=== PATIENT | male | born 1990 | race African-American/Black ===

== ENCOUNTER 2019-08-02 09:05 | Observation (INO) | payer BC ==
[2019-08-02] MEDS ORDERED: Sodium Chloride 0.9% 1,000 ML IV ONE (09:34)
[2019-08-02] MEDS ORDERED: Sodium Chloride 0.9% 10 ML Syringe FLUSH PRN ×2 (09:34→14:39)
[2019-08-02] MEDS ORDERED: Ketorolac 30 MG/ML SDV IVPUSH ONE (09:34)
[2019-08-02] MEDS ORDERED: Sodium Chloride 0.9% 2.5 ML Syringe FLUSH PRN ×2 (09:34→14:39)
--- NOTE | 2019-08-02 09:35 | EDM.PDOC ---
ED HPI GENERAL MEDICAL PROBLEM - General Chief Complaint: Abdominal Pain Stated Complaint: BILATERAL LOWER BACK Time Seen by Provider: 08/02/19 09:10 Source of Information: Reports: Patient History Limitations: Reports: No Limitations - History of Present Illness INITIAL COMMENTS - FREE TEXT/NARRATIVE: History of present illness: []Patient started having bilateral lower abdominal pain worse on the right last night with chills. He eats he has low back pain denies any pain with urination, penile discharge, fevers blood in his urine. She has not had any previous abdominal surgery denies any nausea vomiting. Review of systems: As per history of present illness and below otherwise all systems reviewed and negative. Past medical history: As per history of present illness and as reviewed below otherwise noncontributory. Surgical history: As per history of present illness and as reviewed below otherwise noncontributory. Social history: No reported history of drug or alcohol abuse. Family history: As per history of present illness and as reviewed below otherwise noncontributory. Physical exam: General: Well developed, well nourished in NAD HEENT: Atraumatic, normocephalic, pupils reactive, negative for conjunctival pallor or scleral icterus, mucous membranes moist, throat clear, neck supple, nontender, trachea midline. Lungs: Clear to auscultation, breath sounds equal bilaterally, chest nontender. Heart: S1S2, regular, negative for clicks, rubs, or JVD. Abdomen: NABS, Soft, nondistended, tender bilateral lower quadrant with increased tenderness in the right lower quadrant no rebound or guarding. Negative for masses or hepatosplenomegaly. Negative for costovertebral tenderness. Pelvis: Stable nontender. Genitourinary: Deferred. Rectal: Deferred. Extremities: Atraumatic, negative for cords or calf pain. Neurovascular unremarkable. Neuro: Awake, alert, oriented. Cranial nerves II through XII unremarkable. Cerebellum unremarkable. Motor and sensory unremarkable throughout. Exam nonfocal. Skin:warm and dry Diagnostics: CBC, chemistry, lipase, UA, abdominal ultrasound-acute cholecystitis Therapeutics: IV hydration, Toradol, zosyn ED Course: Stable Impression: acute cholecystitis Prescriptions: none Plan: admit for choleycystectomy Definitive disposition and diagnosis as appropriate pending reevaluation and review of above. Lower Abdomen Pain Score (Numeric/FACES): 8 - Related Data Allergies Allergy/AdvReac Type Severity Reaction Status Date / Time meperidine [From Demerol] Allergy Hives Verified 08/02/19 18:02 morphine Allergy Hives Verified 08/02/19 18:02 Home Meds: Home Meds . [No Known Home Meds] 08/02/19 [History] Past Medical History - Past Health History Medical/Surgical History: Denies Medical/Surgical History - Past Surgical History GI Surgical History: Reports: Hernia Repair/Other Social & Family History - Family History Family Medical History: Noncontributory - Tobacco Use Smoking Status *Q: Light Tobacco Smoker Years of Tobacco use: 10 Packs/Tins Daily: 0.1 - Recreational Drug Use Recreational Drug Use: No ED ROS GENERAL - Review of Systems Review Of Systems: See Below ED EXAM,LOWER BACK PAIN/INJURY - Physical Exam Exam: See Below Course - Vital Signs Last Recorded V/S: Last Vital Signs Temp 99.0 F 08/03/19 09:40 Pulse 68 08/03/19 10:15 Resp 13 08/03/19 10:15 BP 142/88 H 08/03/19 10:15 Pulse Ox 92 L 08/03/19 10:15 - Orders/Labs/Meds Orders: Active Orders 24 hr Category Date Time Status Sodium Chloride 0.9% [Saline Flush] Med 08/02/19 09:34 Active 10 ml FLUSH ASDIRECTED PRN Sodium Chloride 0.9% [Saline Flush] Med 08/02/19 09:34 Active 2.5 ml FLUSH ASDIRECTED PRN Saline Lock Insert [OM.PC] Stat Oth 08/02/19 09:33 Ordered Medication Orders Hydrocodone Bitart/Acetaminophen ([place] 325-5 Mg) 2 tab PO Q4H PRN PRN Reason: Pain (moderate 4-6) Fentanyl (Sublimaze) 50 mcg IVPUSH Q5M PRN PRN Reason: Pain (severe 7-10) Stop: 08/04/19 09:52 Hydromorphone HCl (Dilaudid) 0.5 mg IVPUSH Q1H PRN PRN Reason: Pain (severe 7-10) Ondansetron HCl (Zofran) 4 mg IVPUSH Q6H PRN PRN Reason: Nausea/Vomiting Sodium Chloride (Saline Flush) 10 ml FLUSH ASDIRECTED PRN PRN Reason: Keep Vein Open Sodium Chloride (Saline Flush) 2.5 ml FLUSH ASDIRECTED PRN PRN Reason: Keep Vein Open Sodium Chloride (Saline Flush) 10 ml FLUSH ASDIRECTED PRN PRN Reason: Keep Vein Open Sodium Chloride (Saline Flush) 2.5 ml FLUSH ASDIRECTED PRN PRN Reason: Keep Vein Open Sodium Chloride (Normal Saline) 10 ml IV ASDIRECTED PRN PRN Reason: IV Use Labs: Laboratory Tests 08/02/19 08/02/19 08/02/19 Range/Units 09:49 09:49 09:49 WBC 11.24 H (4.0-11.0) K/uL RBC 5.05 (4.50-5.90) M/uL Hgb 15.1 (13.0-17.0) g/dL Hct 45.0 (38.0-50.0) % MCV 89.1 (80.0-98.0) fL MCH 29.9 (27.0-32.0) pg MCHC 33.6 (31.0-37.0) g/dL RDW Std Deviation 42.7 (28.0-62.0) fl RDW Coeff of [place] 13 (11.0-15.0) % Plt Count 266 (150-400) K/uL MPV 10.20 (7.40-12.00) fL Neut % (Auto) 72.9 (48.0-80.0) % Lymph % (Auto) 15.7 L (16.0-40.0) % [place] % (Auto) 10.3 (0.0-15.0) % Eos % (Auto) 0.9 (0.0-7.0) % Baso % (Auto) 0.2 (0.0-1.5) % Neut # (Auto) 8.2 H (1.4-5.7) K/uL Lymph # (Auto) 1.8 (0.6-2.4) K/uL [place] # (Auto) 1.2 H (0.0-0.8) K/uL Eos # (Auto) 0.1 (0.0-0.7) K/uL Baso # (Auto) 0.0 (0.0-0.1) K/uL Nucleated RBC % 0.0 /100WBC Nucleated RBCs # 0 K/uL Sodium 140 (136-148) mmol/L Potassium 3.4 L (3.5-5.1) mmol/L Chloride 103 (98-107) mmol/L Carbon Dioxide 25.0 (21.0-32.0) mmol/L BUN 11 (7.0-18.0) mg/dL Creatinine 1.0 (0.8-1.3) mg/dL Est Cr Clr Drug Dosing 106.40 mL/min Estimated GFR (MDRD) > 60.0 ml/min Glucose 96 (74-106) mg/dL Calcium 8.9 (8.5-10.1) mg/dL Total Bilirubin 0.3 (0.2-1.0) mg/dL AST 28 (15-37) IU/L ALT 51 (14-63) IU/L Alkaline Phosphatase 78 (46-116) U/L Total Protein 8.8 H (6.4-8.2) g/dL Albumin 3.7 (3.4-5.0) g/dL Globulin 5.1 H (2.6-4.0) g/dL Albumin/Globulin Ratio 0.7 L (0.9-1.6) Lipase 77 (73-393) U/L Urine Color YELLOW Urine Appearance CLEAR Urine pH 6.5 (5.0-8.0) Ur Specific [place] <= 1.005 (1.001-1.035) Urine Protein NEGATIVE (NEGATIVE) mg/dL Urine Glucose (UA) NEGATIVE (NEGATIVE) mg/dL Urine Ketones NEGATIVE (NEGATIVE) mg/dL Urine Occult Blood MODERATE H (NEGATIVE) Urine Nitrite NEGATIVE (NEGATIVE) Urine Bilirubin NEGATIVE (NEGATIVE) Urine Urobilinogen 0.2 (<2.0) EU/dL Ur Leukocyte Esterase NEGATIVE (NEGATIVE) Urine RBC 0-2 (0-2/HPF) Urine WBC 0-1 (0-5/HPF) Ur Epithelial Cells RARE (NONE-FEW) Urine Bacteria RARE (NEGATIVE) Meds: Medications Generic Name Dose Route Start Last Admin Trade Name Freq PRN Reason Stop Dose Admin Hydrocodone Bitart/Acetaminophen 2 tab 08/02/19 14:39 [place] 325-5 Mg PO Q4H PRN Pain (moderate 4-6) Fentanyl 50 mcg 08/03/19 09:51 Sublimaze IVPUSH 08/04/19 09:52 Q5M PRN Pain (severe 7-10) Hydromorphone HCl 0.5 mg 08/02/19 14:39 Dilaudid IVPUSH Q1H PRN Pain (severe 7-10) Ondansetron HCl 4 mg 08/02/19 14:39 Zofran IVPUSH Q6H PRN Nausea/Vomiting Sodium Chloride 10 ml 08/02/19 09:34 Saline Flush FLUSH ASDIRECTED PRN Keep Vein Open Sodium Chloride 2.5 ml 08/02/19 09:34 Saline Flush FLUSH ASDIRECTED PRN Keep Vein Open Sodium Chloride 10 ml 08/02/19 14:39 Saline Flush FLUSH ASDIRECTED PRN Keep Vein Open Sodium Chloride 2.5 ml 08/02/19 14:39 Saline Flush FLUSH ASDIRECTED PRN Keep Vein Open Sodium Chloride 10 ml 08/02/19 14:39 Normal Saline IV ASDIRECTED PRN IV Use Discontinued Medications Generic Name Dose Route Start Last Admin Trade Name Freq PRN Reason Stop Dose Admin Bupivacaine HCl Confirm 08/03/19 07:26 Marcaine 0.5% Administered 08/03/19 07:27 Dose 30 ml .ROUTE .STK-MED ONE Dexamethasone Confirm 08/03/19 08:24 Dexamethasone Administered 08/03/19 08:25 Dose 20 mg .ROUTE .STK-MED ONE Fentanyl Confirm 08/03/19 07:20 Sublimaze Administered 08/03/19 07:21 Dose 250 mcg .ROUTE .STK-MED ONE Fentanyl Confirm 08/03/19 09:03 Sublimaze Administered 08/03/19 09:04 Dose 100 mcg .ROUTE .STK-MED ONE Glycopyrrolate Confirm 08/03/19 09:16 Robinul Administered 08/03/19 09:17 Dose 0.4 mg .ROUTE .STK-MED ONE Sodium Chloride 1,000 mls @ 999 mls/hr 08/02/19 09:34 08/02/19 09:57 Normal Saline IV 08/02/19 10:34 999 mls/hr .Bolus ONE Administration Piperacillin Sod/Tazobactam 50 mls @ 100 mls/hr 08/02/19 13:37 08/02/19 14:43 Sod 3.375 gm/ Sodium Chloride IV 08/02/19 14:06 100 mls/hr ONETIME ONE Administration Lactated Ringer's 1,000 mls @ 125 mls/hr 08/02/19 14:45 08/02/19 23:28 Ringers, Lactated IV 125 mls/hr ASDIRECTED ADI Administration Lactated Ringer's 1,000 mls @ 125 mls/hr 08/02/19 14:45 Ringers, Lactated IV ASDIRECTED ADI Piperacillin Sod/Tazobactam 100 mls @ 200 mls/hr 08/02/19 20:00 08/03/19 07: 50 Sod 3.375 gm/ Sodium Chloride IV Not Given Q6H ADI Iopamidol 100 ml 08/02/19 16:00 08/02/19 16:00 Isovue Multipack-370 (76%) IVPUSH 08/02/19 16:01 100 ml ONETIME STA Administration Ketorolac Tromethamine 30 mg 08/02/19 09:34 08/02/19 09:57 Toradol IVPUSH 08/02/19 09:35 30 mg ONETIME ONE Administration Lidocaine HCl Confirm 08/03/19 07:20 Xylocaine-Mpf 1% Administered 08/03/19 07:21 Dose 5 ml .ROUTE .STK-MED ONE Midazolam HCl Confirm 08/03/19 07:20 Versed 1 Mg/Ml Administered 08/03/19 07:21 Dose 2 mg .ROUTE .STK-MED ONE Neostigmine Methylsulfate Confirm 08/03/19 09:16 Neostigmine Administered 08/03/19 09:17 Dose 5 mg .ROUTE .STK-MED ONE Ondansetron HCl Confirm 08/03/19 07:20 Zofran Administered 08/03/19 07:21 Dose 4 mg .ROUTE .STK-MED ONE Ondansetron HCl 4 mg 08/03/19 09:51 Zofran IVPUSH 08/03/19 09:52 ONETIME ONE Propofol Confirm 08/03/19 07:20 Diprivan 20 Ml Administered 08/03/19 07:21 Dose 200 mg .ROUTE .STK-MED ONE Rocuronium [place] Confirm 08/03/19 07:20 Zemuron Administered 08/03/19 07:21 Dose 100 mg .ROUTE .STK-MED ONE Departure - Departure Time of Disposition: :19 Disposition: Refer to Observation Condition: Good Clinical Impression: Acute cholecystitis - Discharge Information *PRESCRIPTION DRUG MONITORING PROGRAM REVIEWED*: No *COPY OF PRESCRIPTION DRUG MONITORING REPORT IN PATIENT KAREN: No - My Orders Last 24 Hours: My Active Orders 08/02/19 09:33 Saline Lock Insert [OM.PC] Stat 08/02/19 09:34 Sodium Chloride 0.9% [Saline Flush] 10 ml FLUSH ASDIRECTED PRN Sodium Chloride 0.9% [Saline Flush] 2.5 ml FLUSH ASDIRECTED PRN - Assessment/Plan Last 24 Hours: My Active Orders 08/02/19 09:33 Saline Lock Insert [OM.PC] Stat 08/02/19 09:34 Sodium Chloride 0.9% [Saline Flush] 10 ml FLUSH ASDIRECTED PRN Sodium Chloride 0.9% [Saline Flush] 2.5 ml FLUSH ASDIRECTED PRN
[2019-08-02 10:34] LABS: BLOOD UREA NITROGEN,BUN 11 mg/dL (7.0-18.0); CHLORIDE,CL 103 mmol/L (98-107); GLUCOSE RANDOM 96 mg/dL (74-106); LIPASE 77 U/L (73-393); POTASSIUM,K 3.4 mmol/L (3.5-5.1); SODIUM,NA 140 mmol/L (136-148)
--- NOTE | 2019-08-02 12:03 | CT ---
CT abdomen and pelvis Technique: Multiple axial sections were obtained from above the dome of the diaphragm inferiorly through the pubic symphysis. Intravenous contrast was utilized. No oral contrast has been given. Comparison: No prior abdominal imaging. Findings: Small nodule is noted within the left lung base which shows no calcifications. This nodule measures approximately 4.6 mm. Low-density area is noted next to the ligamentum teres fissure which is felt compatible with incidental fat. No focal abnormality is otherwise is seen within the liver. Spleen appears within normal limits. Gallbladder shows calcified gallstone. Low density is noted around the gallbladder suggesting gallbladder wall edema. Please correlate if patient has any symptoms to suggest cholecystitis. Kidneys show symmetric contrast enhancement without hydronephrosis or mass. Adrenal glands show no nodule. Pancreas is within normal limits. Aorta shows no aneurysm. No retroperitoneal adenopathy or mesenteric abnormalities are seen. Appendix is seen and is normal in size. No pelvic mass or adenopathy is seen. No free fluid or inflammatory change is seen. Bone window settings were reviewed which appear within normal limits for the patient's age. Impression: 1. Gallbladder wall edema and gallstone. Findings raise the possibility of cholecystitis. Please correlate. If any further questions remain, gallbladder ultrasound could be obtained. 2. Small nodule within the left lung base. If patient is not a smoker, this can be ignored. If patient is a smoker, recommend repeat chest CT study without contrast in one year. 3. No additional abnormality is identified on CT study of the abdomen and pelvis. Diagnostic code #3 MTDD
--- NOTE | 2019-08-02 13:35 | US ---
Limited abdominal ultrasound: Multiple real-time images of the right upper abdomen were obtained. Comparison: Prior CT abdomen and pelvis exam performed earlier on the same day ( 11:20 AM) Findings: Gallbladder wall is thickened with pericholecystic fluid. Single gallstone is noted. No biliary duct dilatation is seen. Liver shows no focal parenchymal abnormality. Right kidney shows no hydronephrosis or mass. Right kidney has a length of 11.1 cm. Pancreas shows no discrete abnormality. Impression: 1. Gallbladder wall is thickened with pericholecystic fluid. Single gallstone is noted. No biliary duct dilatation is seen. Findings are highly suspicious for acute cholecystitis. 2. Other portions of the right upper quadrant abdominal ultrasound are unremarkable. Diagnostic code #5 MTDD
[2019-08-02] MEDS ORDERED: Piperacillin/Tazobactam 3.375 GM in Sodium Chloride 0.9% 50 ML IV ONE (13:37)
--- NOTE | 2019-08-02 14:19 | PCM.HP.2 ---
H&P History of Present Illness - General Date of Service: 08/02/19 Admit Problem/Dx: Admission Diagnosis/Problem Admission Diagnosis/Problem Acute cholecystitis Source of Information: Patient History Limitations: Reports: No Limitations - History of Present Illness Initial Comments - Free Text/Narative: Patient is a 28 year old male who presented with abdominal pain to the ER. It started last evening after eating [employer]. He developed sharp pains across the mid-abdomen. It was constant. Nothing made it better or worse. He denies fevers, chills, nausea or vomiting. He presented to the ER. He was slightly hypertensive and mildly tachycardic. He was given IV pain medications with complete resolution of his symptoms. He had a mild leukocytosis. LFTs were normal. CT abdomen pelvis showed an edematous gallbladder with a stone concerning for acute cholecystitis. This was confirmed by RUQ US. He denies raza's sign. Lower Abdomen Pain Score (Numeric/FACES): 8 - Related Data Allergies/Adverse Reactions: Allergies Allergy/AdvReac Type Severity Reaction Status Date / Time meperidine [From Demerol] Allergy Hives Verified 08/02/19 09:16 morphine Allergy Hives Verified 08/02/19 09:16 Home Medications: Home Meds . [No Known Home Meds] 08/02/19 [History] Past Medical History - Past Health History Medical/Surgical History: Denies Medical/Surgical History - Past Surgical History GI Surgical History: Reports: Hernia Repair/Other Other Musculoskeletal Surgeries/Procedures:: hand surgery Social & Family History - Family History Family Medical History: Noncontributory - Tobacco Use Smoking Status *Q: Light Tobacco Smoker Years of Tobacco use: 10 Packs/Tins Daily: 0.1 - Recreational Drug Use Recreational Drug Use: No H&P Review of Systems - Review of Systems: Review Of Systems: ROS reveals no pertinent complaints other than HPI. Exam - Exam Exam: See Below - Vital Signs Vital Signs: Last Vital Signs Temp 36.1 C 08/02/19 09:13 Pulse 100 08/02/19 09:13 Resp 18 08/02/19 09:13 BP 134/95 H 08/02/19 09:13 Pulse Ox 98 08/02/19 09:13 Weight: 82.4 kg - Exam Quality Assessment: Supplemental Oxygen General: Alert, Oriented HEENT: Conjunctiva Clear, Mucosa Moist & [place], Posterior Pharynx Clear Neck: Supple, Trachea Midline Lungs: Clear to Auscultation Cardiovascular: Regular Rate, Regular Rhythm GI/Abdominal Exam: Soft, Non-Tender, No Distention, No Mass Back Exam: Normal Inspection - Patient Data Lab Results Last 24 hrs: Laboratory Results - last 24 hr 08/02/19 08/02/19 08/02/19 Range/Units 09:49 09:49 09:49 WBC 11.24 H (4.0-11.0) K/uL RBC 5.05 (4.50-5.90) M/uL Hgb 15.1 (13.0-17.0) g/dL Hct 45.0 (38.0-50.0) % MCV 89.1 (80.0-98.0) fL MCH 29.9 (27.0-32.0) pg MCHC 33.6 (31.0-37.0) g/dL RDW Std Deviation 42.7 (28.0-62.0) fl RDW Coeff of [place] 13 (11.0-15.0) % Plt Count 266 (150-400) K/uL MPV 10.20 (7.40-12.00) fL Neut % (Auto) 72.9 (48.0-80.0) % Lymph % (Auto) 15.7 L (16.0-40.0) % [place] % (Auto) 10.3 (0.0-15.0) % Eos % (Auto) 0.9 (0.0-7.0) % Baso % (Auto) 0.2 (0.0-1.5) % Neut # (Auto) 8.2 H (1.4-5.7) K/uL Lymph # (Auto) 1.8 (0.6-2.4) K/uL [place] # (Auto) 1.2 H (0.0-0.8) K/uL Eos # (Auto) 0.1 (0.0-0.7) K/uL Baso # (Auto) 0.0 (0.0-0.1) K/uL Nucleated RBC % 0.0 /100WBC Nucleated RBCs # 0 K/uL Sodium 140 (136-148) mmol/L Potassium 3.4 L (3.5-5.1) mmol/L Chloride 103 (98-107) mmol/L Carbon Dioxide 25.0 (21.0-32.0) mmol/L BUN 11 (7.0-18.0) mg/dL Creatinine 1.0 (0.8-1.3) mg/dL Est Cr Clr Drug Dosing 106.40 mL/min Estimated GFR (MDRD) > 60.0 ml/min Glucose 96 (74-106) mg/dL Calcium 8.9 (8.5-10.1) mg/dL Total Bilirubin 0.3 (0.2-1.0) mg/dL AST 28 (15-37) IU/L ALT 51 (14-63) IU/L Alkaline Phosphatase 78 (46-116) U/L Total Protein 8.8 H (6.4-8.2) g/dL Albumin 3.7 (3.4-5.0) g/dL Globulin 5.1 H (2.6-4.0) g/dL Albumin/Globulin Ratio 0.7 L (0.9-1.6) Lipase 77 (73-393) U/L Urine Color YELLOW Urine Appearance CLEAR Urine pH 6.5 (5.0-8.0) Ur Specific [place] <= 1.005 (1.001-1.035) Urine Protein NEGATIVE (NEGATIVE) mg/dL Urine Glucose (UA) NEGATIVE (NEGATIVE) mg/dL Urine Ketones NEGATIVE (NEGATIVE) mg/dL Urine Occult Blood MODERATE H (NEGATIVE) Urine Nitrite NEGATIVE (NEGATIVE) Urine Bilirubin NEGATIVE (NEGATIVE) Urine Urobilinogen 0.2 (<2.0) EU/dL Ur Leukocyte Esterase NEGATIVE (NEGATIVE) Urine RBC 0-2 (0-2/HPF) Urine WBC 0-1 (0-5/HPF) Ur Epithelial Cells RARE (NONE-FEW) Urine Bacteria RARE (NEGATIVE) Result Diagrams: 08/02/19 09:49 08/02/19 09:49 - Problem List (1) Acute cholecystitis due to biliary calculus SNOMED Code(s): 51905025228313 ICD Code: K80.00 - CALCULUS OF GALLBLADDER W ACUTE CHOLECYST W/O OBSTRUCTION Status: Acute Current Visit: Yes Problem List Initiated/Reviewed/Updated: Yes Orders Last 24hrs: Active Orders 24 hr Category Date Time Status Patient Status [ADT] Stat ADT 08/02/19 14:11 Active NPO [Nothing Per Oral Diet] [DIET] Diet 08/02/19 Lunch Active Sodium Chloride 0.9% [Saline Flush] Med 08/02/19 09:34 Active 10 ml FLUSH ASDIRECTED PRN Sodium Chloride 0.9% [Saline Flush] Med 08/02/19 09:34 Active 2.5 ml FLUSH ASDIRECTED PRN Saline Lock Insert [OM.PC] Stat Oth 08/02/19 09:33 Ordered Medication Orders Sodium Chloride (Saline Flush) 10 ml FLUSH ASDIRECTED PRN PRN Reason: Keep Vein Open Sodium Chloride (Saline Flush) 2.5 ml FLUSH ASDIRECTED PRN PRN Reason: Keep Vein Open Assessment/Plan Comment:: I explained the pathophysiology of biliary disease. The treatment for acute cholecystitis is surgical if the symptoms have been going on for <3 days. I will admit the patient for IV antibiotics, IVF resuscitation and take him in the morning for a laparoscopic possible open cholecystectomy. We discussed the procedure, expected perioperative course and risks including bleeding infection or damage to surrounding structures. He verbalized understanding and wishes to proceed.
[2019-08-02] MEDS ORDERED: Ondansetron 4 MG/2 ML SDV IVPUSH PRN (14:39)
[2019-08-02] MEDS ORDERED: Sodium Chloride 0.9% 10 ML SDV IV PRN (14:39)
[2019-08-02] MEDS ORDERED: HYDROmorphone 2 MG/ML Syringe IVPUSH PRN (14:39)
[2019-08-02] MEDS: Lactated Ringers 1,000 ML IV SCH ×2 (14:43→23:28)
[2019-08-02] MEDS ORDERED: Lactated Ringers 1,000 ML IV SCH (14:45)
[2019-08-02] MEDS ORDERED: Iopamidol 755 MG/ML 500 ML Multipack Bottle IVPUSH STA (16:00)
[2019-08-02] MEDS: Piperacillin/Tazobactam 3.375 GM in Sodium Chloride 0.9% 100 ML IV SCH (20:48)
[2019-08-03] MEDS: Piperacillin/Tazobactam 3.375 GM in Sodium Chloride 0.9% 100 ML IV SCH ×2 (01:32→07:50)
[2019-08-03 05:32] LABS: BLOOD UREA NITROGEN,BUN 9 mg/dL (7.0-18.0); CARBON DIOXIDE,CO2 25.9 mmol/L (21.0-32.0); CHLORIDE,CL 105 mmol/L (98-107); GLUCOSE RANDOM 86 mg/dL (74-106); POTASSIUM,K 3.7 mmol/L (3.5-5.1); SODIUM,NA 141 mmol/L (136-148)
[2019-08-03] MEDS ORDERED: Ondansetron 4 MG/2 ML SDV ONE (07:20)
[2019-08-03] MEDS ORDERED: fentaNYL 250 MCG/5 ML SDV ONE (07:20)
[2019-08-03] MEDS ORDERED: Midazolam 1 MG/ML 2 ML SDV ONE (07:20)
[2019-08-03] MEDS ORDERED: Rocuronium 100 MG/10 ML Syringe ONE (07:20)
[2019-08-03] MEDS ORDERED: Propofol 200 MG/20 ML SDV ONE (07:20)
[2019-08-03] MEDS ORDERED: Bupivacaine 0.5% 30 ML SDV ONE (07:26)
--- NOTE | 2019-08-03 07:27 | PCM.PREANE ---
Preanesthetic Assessment - Anesthesia/Transfusion/Family Hx Anesthesia History: Prior Anesthesia Without Reaction Family History of Anesthesia Reaction: No Transfusion History: No Prior Transfusion(s) - Review of Systems General: No Symptoms Pulmonary: No Symptoms Cardiovascular: No Symptoms Gastrointestinal: Abdominal Pain Neurological: No Symptoms Other: Reports: None - Physical Assessment Vital Signs: Last Vital Signs Temp 97.9 F 08/03/19 04:00 Pulse 54 L 08/03/19 04:00 Resp 16 08/03/19 04:00 BP 136/79 08/03/19 04:00 Pulse Ox 95 08/03/19 04:00 Height: 5 ft 8 in Weight: 81.601 kg ASA Class: 2 Mental Status: Alert & Oriented x3 Airway Class: Mallampati = 2 Dentition: Reports: Normal Dentition ROM/Head Extension: Full Lungs: Clear to Auscultation, Normal Respiratory Effort Cardiovascular: Regular Rate, Regular Rhythm - Lab Values: Laboratory Last Values WBC 8.39 K/uL (4.0-11.0) 08/03/19 04:50 RBC 4.74 M/uL (4.50-5.90) 08/03/19 04:50 Hgb 14.1 g/dL (13.0-17.0) 08/03/19 04:50 Hct 42.5 % (38.0-50.0) 08/03/19 04:50 MCV 89.7 fL (80.0-98.0) 08/03/19 04:50 MCH 29.7 pg (27.0-32.0) 08/03/19 04:50 MCHC 33.2 g/dL (31.0-37.0) 08/03/19 04:50 RDW Std Deviation 43.2 fl (28.0-62.0) 08/03/19 04:50 RDW Coeff of Wilda 13 % (11.0-15.0) 08/03/19 04:50 Plt Count 258 K/uL (150-400) 08/03/19 04:50 MPV 10.20 fL (7.40-12.00) 08/03/19 04:50 Neut % (Auto) 72.9 % (48.0-80.0) 08/02/19 09:49 Lymph % (Auto) 15.7 % (16.0-40.0) L 08/02/19 09:49 [place] % (Auto) 10.3 % (0.0-15.0) 08/02/19 09:49 Eos % (Auto) 0.9 % (0.0-7.0) 08/02/19 09:49 Baso % (Auto) 0.2 % (0.0-1.5) 08/02/19 09:49 Neut # (Auto) 8.2 K/uL (1.4-5.7) H 08/02/19 09:49 Lymph # (Auto) 1.8 K/uL (0.6-2.4) 08/02/19 09:49 [place] # (Auto) 1.2 K/uL (0.0-0.8) H 08/02/19 09:49 Eos # (Auto) 0.1 K/uL (0.0-0.7) 08/02/19 09:49 Baso # (Auto) 0.0 K/uL (0.0-0.1) 08/02/19 09:49 Nucleated RBC % 0.0 /100WBC 08/03/19 04:50 Nucleated RBCs # 0 K/uL 08/03/19 04:50 Sodium 141 mmol/L (136-148) 08/03/19 04:50 Potassium 3.7 mmol/L (3.5-5.1) 08/03/19 04:50 Chloride 105 mmol/L (98-107) 08/03/19 04:50 Carbon Dioxide 25.9 mmol/L (21.0-32.0) 08/03/19 04:50 BUN 9 mg/dL (7.0-18.0) 08/03/19 04:50 Creatinine 1.1 mg/dL (0.8-1.3) 08/03/19 04:50 Est Cr Clr Drug Dosing 96.73 mL/min 08/03/19 04:50 Estimated GFR (MDRD) > 60.0 ml/min 08/03/19 04:50 Glucose 86 mg/dL (74-106) 08/03/19 04:50 Calcium 8.6 mg/dL (8.5-10.1) 08/03/19 04:50 Total Bilirubin 0.9 mg/dL (0.2-1.0) 08/03/19 04:50 AST 25 IU/L (15-37) 08/03/19 04:50 ALT 42 IU/L (14-63) 08/03/19 04:50 Alkaline Phosphatase 68 U/L (46-116) 08/03/19 04:50 Total Protein 7.4 g/dL (6.4-8.2) 08/03/19 04:50 Albumin 3.0 g/dL (3.4-5.0) L 08/03/19 04:50 Globulin 4.4 g/dL (2.6-4.0) H 08/03/19 04:50 Albumin/Globulin Ratio 0.7 (0.9-1.6) L 08/03/19 04:50 Lipase 77 U/L (73-393) 08/02/19 09:49 Urine Color YELLOW 08/02/19 09:49 Urine Appearance CLEAR 08/02/19 09:49 Urine pH 6.5 (5.0-8.0) 08/02/19 09:49 Ur Specific Milner <= 1.005 (1.001-1.035) 08/02/19 09:49 Urine Protein NEGATIVE mg/dL (NEGATIVE) 08/02/19 09:49 Urine Glucose (UA) NEGATIVE mg/dL (NEGATIVE) 08/02/19 09:49 Urine Ketones NEGATIVE mg/dL (NEGATIVE) 08/02/19 09:49 Urine Occult Blood MODERATE (NEGATIVE) H 08/02/19 09:49 Urine Nitrite NEGATIVE (NEGATIVE) 08/02/19 09:49 Urine Bilirubin NEGATIVE (NEGATIVE) 08/02/19 09:49 Urine Urobilinogen 0.2 EU/dL (<2.0) 08/02/19 09:49 Ur Leukocyte Esterase NEGATIVE (NEGATIVE) 08/02/19 09:49 Urine RBC 0-2 (0-2/HPF) 08/02/19 09:49 Urine WBC 0-1 (0-5/HPF) 08/02/19 09:49 Ur Epithelial Cells RARE (NONE-FEW) 08/02/19 09:49 Urine Bacteria RARE (NEGATIVE) 08/02/19 09:49 - Allergies Allergies/Adverse Reactions: Allergies Allergy/AdvReac Type Severity Reaction Status Date / Time meperidine [From Demerol] Allergy Hives Verified 08/02/19 18:02 morphine Allergy Hives Verified 08/02/19 18:02 - Blood Blood Available: No - Anesthesia Plan Pre-Op Medication Ordered: None - Acknowledgements Anesthesia Type Planned: General Anesthesia Pt an Appropriate Candidate for the Planned Anesthesia: Yes Alternatives and Risks of Anesthesia Discussed w Pt/Guardian: Yes Pt/Guardian Understands and Agrees with Anesthesia Plan: Yes Additional Comments: PMH: smoker, acute cholecyctitis PLAN: get PreAnesthesia Questionnaire - Past Health History Medical/Surgical History: Denies Medical/Surgical History - Past Surgical History GI Surgical History: Reports: Hernia Repair/Other Other Musculoskeletal Surgeries/Procedures:: hand surgery - SUBSTANCE USE Smoking Status *Q: Current Some Day Smoker Tobacco Use Within Last Twelve Months: Cigarettes Number of Drinks Per Day: 2 Recreational Drug Use History: No - HOME MEDS Home Medications: Home Meds . [No Known Home Meds] 08/02/19 [History] - CURRENT (IN HOUSE) MEDS Current Meds: Current Medications Hydrocodone Bitart/Acetaminophen ([place] 325-5 Mg) 2 tab PO Q4H PRN PRN Reason: Pain (moderate 4-6) Hydromorphone HCl (Dilaudid) 0.5 mg IVPUSH Q1H PRN PRN Reason: Pain (severe 7-10) Lactated Ringer's (Ringers, Lactated) 1,000 mls @ 125 mls/hr IV ASDIRECTED [facility] Last Admin: 08/02/19 23:28 Dose: 125 mls/hr Piperacillin Sod/Tazobactam (Sod 3.375 gm/ Sodium Chloride) 100 mls @ 200 mls/ hr IV Q6H [facility] Last Admin: 08/03/19 01:32 Dose: 200 mls/hr Ondansetron HCl (Zofran) 4 mg IVPUSH Q6H PRN PRN Reason: Nausea/Vomiting Sodium Chloride (Saline Flush) 10 ml FLUSH ASDIRECTED PRN PRN Reason: Keep Vein Open Sodium Chloride (Saline Flush) 2.5 ml FLUSH ASDIRECTED PRN PRN Reason: Keep Vein Open Sodium Chloride (Saline Flush) 10 ml FLUSH ASDIRECTED PRN PRN Reason: Keep Vein Open Sodium Chloride (Saline Flush) 2.5 ml FLUSH ASDIRECTED PRN PRN Reason: Keep Vein Open Sodium Chloride (Normal Saline) 10 ml IV ASDIRECTED PRN PRN Reason: IV Use Discontinued Medications Fentanyl (Sublimaze) Confirm Administered Dose 250 mcg .ROUTE .STK-MED ONE Stop: 08/03/19 07:21 Sodium Chloride (Normal Saline) 1,000 mls @ 999 mls/hr IV .Bolus ONE Stop: 08/02/19 10:34 Last Admin: 08/02/19 09:57 Dose: 999 mls/hr Piperacillin Sod/Tazobactam (Sod 3.375 gm/ Sodium Chloride) 50 mls @ 100 mls/ hr IV ONETIME ONE Stop: 08/02/19 14:06 Last Admin: 08/02/19 14:43 Dose: 100 mls/hr Lactated Ringer's (Ringers, Lactated) 1,000 mls @ 125 mls/hr IV ASDIRECTED [facility]I Iopamidol (Isovue Multipack-370 (76%)) 100 ml IVPUSH ONETIME STA Stop: 08/02/19 16:01 Last Admin: 08/02/19 16:00 Dose: 100 ml Ketorolac Tromethamine (Toradol) 30 mg IVPUSH ONETIME ONE Stop: 08/02/19 09:35 Last Admin: 08/02/19 09:57 Dose: 30 mg Lidocaine HCl (Xylocaine-Mpf 1%) Confirm Administered Dose 5 ml .ROUTE .STK-MED ONE Stop: 08/03/19 07:21 Midazolam HCl (Versed 1 Mg/Ml) Confirm Administered Dose 2 mg .ROUTE .STK-MED ONE Stop: 08/03/19 07:21 Ondansetron HCl (Zofran) Confirm Administered Dose 4 mg .ROUTE .STK-MED ONE Stop: 08/03/19 07:21 Propofol (Diprivan 20 Ml) Confirm Administered Dose 200 mg .ROUTE .STK-MED ONE Stop: 08/03/19 07:21 Rocuronium [place] (Zemuron) Confirm Administered Dose 100 mg .ROUTE .STK-MED ONE Stop: 08/03/19 07:21
[2019-08-03] MEDS ORDERED: Dexamethasone 4 MG/ML 5 ML MDV ONE (08:24)
[2019-08-03] MEDS ORDERED: fentaNYL 100 MCG/2 ML SDV ONE (09:03)
[2019-08-03] MEDS ORDERED: Neostigmine Methylsulfate 1 MG/ML 5 ML Syringe ONE (09:16)
[2019-08-03] MEDS ORDERED: Glycopyrrolate 0.2 MG/ML SDV ONE (09:16)
--- NOTE | 2019-08-03 09:34 | PCM.OPNOTE ---
- General Post-Op/Procedure Note Date of Surgery/Procedure: 08/03/19 Operative Procedure(s): Laparoscopic cholecystectomy Findings: Edematous and distended gallbladder consistent with acute cholecystitis Pre Op Diagnosis: Acute cholecystectomy Post-Op Diagnosis: same Anesthesia Technique: General ET Tube Primary Surgeon: Mariaelena Nix Fluid Replacement, Intraop: 1,500 Output, Urine Amount: 700 EBL in mLs: 75 Condition: Good Free Text/Narrative:: Intake & Output 08/02/19 08/03/19 08/03/19 22:59 06:59 14:59 Intake Total 943 2562 Output Total 0 1000 Balance 943 1562
[2019-08-03] MEDS ORDERED: Ondansetron 4 MG/2 ML SDV IVPUSH ONE (09:51)
[2019-08-03] MEDS ORDERED: fentaNYL 100 MCG/2 ML SDV IVPUSH PRN (09:51)
--- NOTE | 2019-08-03 10:25 | PCM.POSTAN ---
POST ANESTHESIA ASSESSMENT - MENTAL STATUS Mental Status: Alert, Oriented - VITAL SIGNS Vital Signs: Last Vital Signs Temp 99.0 F 08/03/19 09:40 Pulse 62 08/03/19 10:20 Resp 14 08/03/19 10:20 BP 143/86 H 08/03/19 10:20 Pulse Ox 92 L 08/03/19 10:20 - RESPIRATORY Respiratory Status: Respiratory Rate WNL, Airway Patent, O2 Saturation Stable - CARDIOVASCULAR CV Status: Pulse Rate WNL, Blood Pressure Stable - GASTROINTESTINAL GI Status: No Symptoms - POST OP HYDRATION Hydration Status: Adequate & Stable
--- NOTE | 2019-08-03 13:55 | OR ---
SURGEON: MARIAELENA NIX MD DATE OF PROCEDURE: 08/02/2019 PREOPERATIVE DIAGNOSIS: Acute cholecystitis. POSTOPERATIVE DIAGNOSIS: Acute cholecystitis. PROCEDURE PERFORMED: Laparoscopic cholecystectomy. PRIMARY SURGEON: Mariaelena Nix MD. ANESTHESIA: General endotracheal anesthesia. FLUIDS: 1500 mL of crystalloid. URINE OUTPUT: 700 mL. FINDINGS: Edematous and inflamed gallbladder consistent with acute cholecystitis. COMPLICATIONS: None. INDICATIONS: The patient is a 28-year-old male who presented to the emergency room with abdominal pain. Workup revealed the patient had cholelithiasis with evidence of acute cholecystitis. I explained the need for a laparoscopic, possible open, cholecystectomy. I explained the procedure; expected perioperative course; and risks including bleeding, infection, or damage to surrounding structures. The patient verbalized understanding and wishes to proceed. PROCEDURE IN DETAIL: The patient was brought into the OR and placed on the OR table in supine position. A time-out was completed verifying the patient's name, age, date of , allergies, and procedure to be performed. General endotracheal anesthesia was induced. The left arm was tucked to the patient's side and a Luong catheter placed. The abdomen was prepped and draped in usual standard fashion. I anesthetized the infraumbilical fold with 0.5% Marcaine plain. An incision was made with an 11 blade along the infraumbilical fold. Cautery was used to dissect down through the layers of the subcutaneous fat. The fascia was grasped with Samanta's and elevated. It was incised sharply with the Metzenbaum scissors. The peritoneum was identified. This was elevated with hemostats and incised sharply as well. Entry into the abdomen was palpated digitally. A 12 mm Trinity trocar was placed in the abdomen. The abdomen was insufflated, and I inserted a 5 mm 30-degree scope. No damage to surrounding structures was noted. The patient was placed into reverse Trendelenburg position and airplaned slightly to the left. 5 mm trocars were placed in the following locations under direct visualization, one in the epigastric area, one in the right flank, and one 2 fingerbreadths below the right subcostal margin in the midclavicular line. The dome of the gallbladder was grasped with an atraumatic grasper and elevated cranially. The gallbladder was distended and very edematous consistent with acute cholecystitis. Using gentle blunt dissection and hook cautery, I took down the peritoneal attachments along the infundibulum. I was able to dissect out the cystic duct easily. I then started dissecting along the proximal plate and a small branch of the cystic artery was entered. Surgicel and a small clip were applied, which controlled the majority of the bleeding. I was unable to dissect out my cystic artery and doubly clipped and ligated this, which then controlled all of the bleeding. The cystic duct was doubly clipped and ligated then as well. I then completed my dissection of the cystic plate. The gallbladder was then placed in an Endo Catch bag and removed through the infraumbilical port site. The trocar was replaced, and I inspected my operative field. The abdomen was irrigated with 2 L of normal saline until it was running clear. I reinspected my operative field. It appeared to be hemostatic and there was no evidence of bile leakage. The 5 mm trocars were then removed under direct visualization and the abdomen allowed to desufflate. The 12 mm trocar was removed as well. The fascia at the infraumbilical port site was closed with interrupted 0 Vicryl sutures. The subcutaneous fat layer was closed with interrupted 3-0 Vicryl sutures. The skin was closed with a running 4-0 Monocryl stitch. The 5 mm trocar sites were closed with interrupted 4-0 Monocryl sutures. Steri-Strips and sterile dressings were applied. The patient tolerated the procedure well and was transferred to the PACU in stable condition. All counts were complete and correct at the end of the case. ASTER CAM /[id number] JUHI
[2019-08-03] MEDS: Acetaminophen/HYDROcodone 325-5 MG Tab PO PRN ×2 (19:15→23:37)
--- NOTE | 2019-08-04 07:58 | PCM.DCSUM1 ---
Discharge Summary - Hospital Course Free Text/Narrative:: Patient is a 28 year old male who presented to the ER with abdominal pain. Work up revealed acute cholecystitis. He was admitted to the hospital for fluid resucitation and IV antibiotics. He was take the next day to the OR for a laparoscopic cholecystectomy. His gallbladder was distended inflamed and edematous consistent with acute cholecystitis. He had no acute issues post operatively. His vitals were stable. His abdomen was soft, mildly distended but non tender. He is passing gas and tolerating a regular diet. His pain is well controlled with po medications. He was cleared for discharge. - Discharge Data Discharge Date: 08/04/19 Discharge Disposition: Home, Self-Care 01 Condition: Good - Referral to Home Health Primary Care Physician: PCP None - Discharge Diagnosis/Problem(s) (1) Acute cholecystitis due to biliary calculus SNOMED Code(s): 00127144065478 ICD Code: K80.00 - CALCULUS OF GALLBLADDER W ACUTE CHOLECYST W/O OBSTRUCTION Status: Acute - Patient Summary/Data Operative Procedure(s) Performed: Laparoscopic cholecystectomy - Patient Instructions Diet: Regular Diet as Tolerated, Drink 8-10+ Glasses/Day Activity: No Lifting Over 20 Pounds (for four weeks after surgery ), Rest and Relax Today Driving: Do Not Drive (for one week ) Showering/Bathing: No Showering (for one day), No Tub Bathing/Swimming (for 2 weeks ) Wound/Incision Care: Keep Operative Site/Wound Site Clean and Dry Notify Provider of: Fever, Increased Pain, Swelling and Redness, Drainage, Nausea and/or Vomiting Other/Special Instructions: Take OTC Miralax or dulcolax tabs daily until having BMs. - Discharge Plan *PRESCRIPTION DRUG MONITORING PROGRAM REVIEWED*: Yes *COPY OF PRESCRIPTION DRUG MONITORING REPORT IN PATIENT KAREN: Yes Home Medications: Home Meds . [No Known Home Meds] 08/02/19 [History] Patient Handouts: Acetaminophen; Hydrocodone tablets or capsules, Laparoscopic Cholecystectomy, Care After, [id number] Referrals: Mariaelena Nix MD [Physician] - 08/15/19 8:15 am (Please arrive early to check in) - Discharge Summary/Plan Comment DC Time >30 min.: No - General Info Functional Status: Reports: Pain Controlled, Tolerating Diet, Ambulating, Urinating - Review of Systems General: Reports: No Symptoms HEENT: Reports: No Symptoms Pulmonary: Reports: No Symptoms Cardiovascular: Reports: No Symptoms Gastrointestinal: Reports: Flatus Genitourinary: Reports: No Symptoms Musculoskeletal: Reports: No Symptoms Skin: Reports: No Symptoms - Patient Data Vitals - Most Recent: Last Vital Signs Temp 36.6 C 08/04/19 07:19 Pulse 83 08/04/19 07:19 Resp 19 08/04/19 07:19 BP 144/87 H 08/04/19 07:19 Pulse Ox 98 08/04/19 07:19 Weight - Most Recent: 81.601 kg I&O - Last 24 hours: Intake & Output 08/03/19 08/04/19 08/04/19 22:59 06:59 14:59 Intake Total 540 950 Output Total 740 900 Balance -200 50 Med Orders - Current: Current Medications Hydrocodone Bitart/Acetaminophen ([place] 325-5 Mg) 2 tab PO Q4H PRN PRN Reason: Pain (moderate 4-6) Last Admin: 08/03/19 23:37 Dose: 2 tab Fentanyl (Sublimaze) 50 mcg IVPUSH Q5M PRN PRN Reason: Pain (severe 7-10) Stop: 08/04/19 09:52 Hydromorphone HCl (Dilaudid) 0.5 mg IVPUSH Q1H PRN PRN Reason: Pain (severe 7-10) Last Admin: 08/03/19 10:57 Dose: 0.5 mg Ondansetron HCl (Zofran) 4 mg IVPUSH Q6H PRN PRN Reason: Nausea/Vomiting Sodium Chloride (Saline Flush) 10 ml FLUSH ASDIRECTED PRN PRN Reason: Keep Vein Open Sodium Chloride (Saline Flush) 2.5 ml FLUSH ASDIRECTED PRN PRN Reason: Keep Vein Open Sodium Chloride (Saline Flush) 10 ml FLUSH ASDIRECTED PRN PRN Reason: Keep Vein Open Sodium Chloride (Saline Flush) 2.5 ml FLUSH ASDIRECTED PRN PRN Reason: Keep Vein Open Sodium Chloride (Normal Saline) 10 ml IV ASDIRECTED PRN PRN Reason: IV Use Discontinued Medications Bupivacaine HCl (Marcaine 0.5%) Confirm Administered Dose 30 ml .ROUTE .STK-MED ONE Stop: 08/03/19 07:27 Dexamethasone (Dexamethasone) Confirm Administered Dose 20 mg .ROUTE .STK-MED ONE Stop: 08/03/19 08:25 Fentanyl (Sublimaze) Confirm Administered Dose 250 mcg .ROUTE .STK-MED ONE Stop: 08/03/19 07:21 Fentanyl (Sublimaze) Confirm Administered Dose 100 mcg .ROUTE .STK-MED ONE Stop: 08/03/19 09:04 Glycopyrrolate (Robinul) Confirm Administered Dose 0.4 mg .ROUTE .STK-MED ONE Stop: 08/03/19 09:17 Sodium Chloride (Normal Saline) 1,000 mls @ 999 mls/hr IV .Bolus ONE Stop: 08/02/19 10:34 Last Admin: 08/02/19 09:57 Dose: 999 mls/hr Piperacillin Sod/Tazobactam (Sod 3.375 gm/ Sodium Chloride) 50 mls @ 100 mls/ hr IV ONETIME ONE Stop: 08/02/19 14:06 Last Admin: 08/02/19 14:43 Dose: 100 mls/hr Lactated Ringer's (Ringers, Lactated) 1,000 mls @ 125 mls/hr IV ASDIRECTED ADI Last Admin: 08/02/19 23:28 Dose: 125 mls/hr Lactated Ringer's (Ringers, Lactated) 1,000 mls @ 125 mls/hr IV ASDIRECTED ADI Piperacillin Sod/Tazobactam (Sod 3.375 gm/ Sodium Chloride) 100 mls @ 200 mls/ hr IV Q6H [facility] Last Admin: 08/03/19 07:50 Dose: Not Given Iopamidol (Isovue Multipack-370 (76%)) 100 ml IVPUSH ONETIME STA Stop: 08/02/19 16:01 Last Admin: 08/02/19 16:00 Dose: 100 ml Ketorolac Tromethamine (Toradol) 30 mg IVPUSH ONETIME ONE Stop: 08/02/19 09:35 Last Admin: 08/02/19 09:57 Dose: 30 mg Lidocaine HCl (Xylocaine-Mpf 1%) Confirm Administered Dose 5 ml .ROUTE .STK-MED ONE Stop: 08/03/19 07:21 Midazolam HCl (Versed 1 Mg/Ml) Confirm Administered Dose 2 mg .ROUTE .STK-MED ONE Stop: 08/03/19 07:21 Neostigmine Methylsulfate (Neostigmine) Confirm Administered Dose 5 mg .ROUTE .STK-MED ONE Stop: 08/03/19 09:17 Ondansetron HCl (Zofran) Confirm Administered Dose 4 mg .ROUTE .STK-MED ONE Stop: 08/03/19 07:21 Ondansetron HCl (Zofran) 4 mg IVPUSH ONETIME ONE Stop: 08/03/19 09:52 Last Admin: 08/03/19 10:59 Dose: Not Given Propofol (Diprivan 20 Ml) Confirm Administered Dose 200 mg .ROUTE .STK-MED ONE Stop: 08/03/19 07:21 Rocuronium [place] (Zemuron) Confirm Administered Dose 100 mg .ROUTE .STK-MED ONE Stop: 08/03/19 07:21 - Exam General: Reports: Alert, Oriented HEENT: Reports: Pupils Equal, Pupils Reactive Neck: Reports: Supple Lungs: Reports: Normal Respiratory Effort Cardiovascular: Reports: Regular Rate GI/Abdominal Exam: Soft, Non-Tender, No Mass, Distended (mild and diffuse) Wound/Incisions: Reports: Drainage (scant bloody drainage )
[2019-08-04] MEDS: Acetaminophen/HYDROcodone 325-5 MG Tab PO PRN (09:28)
== END 2019-08-04 09:25 | disposition home or self-care (01) ==
LOC: MW.ED 09:05 → MW.MS 14:11
PROVIDERS: ADMIT Surgery; ATTEND Surgery
DX: K80.12 Calculus of gallbladder with acute and chronic cholecystitis without obstruction (principal); F17.200 Nicotine dependence, unspecified, uncomplicated; Z88.5 Allergy status to narcotic agent
CPT/HCPCS: 36415; 74177; 74177-26; 76705; 76705-26; 80053; 81001; 83690; 85025; 85027; 88304; 96361; 96365; 96375; 96376; 99284; 99285-25; A9270-GY; G0378; J1100; J1170; J1885; J2001; J2250; J2405; J2543; J2704; J3010; J3490; J7030; J7040; J7050; J7120; Q9967

== ENCOUNTER 2021-07-10 13:34 | Emergency (ER) | payer SELFPAY ==
[2021-07-10] MEDS ORDERED: Sodium Chloride 0.9% 1,000 ML IV ONE (13:37)
[2021-07-10] MEDS ORDERED: Famotidine 20 MG/2 ML SDV IVPUSH ONE (14:54)
[2021-07-10] MEDS ORDERED: Ondansetron 4 MG/2 ML SDV IVPUSH ONE (14:54)
--- NOTE | 2021-07-10 15:24 | EDM.PDOC ---
ED HPI GENERAL MEDICAL PROBLEM - General Chief Complaint: Abdominal Pain Stated Complaint: UPSET STOMACH,EXCESSIVE SWEATING, VOMMITTING Time Seen by Provider: 07/10/21 13:36 Source of Information: Reports: Patient History Limitations: Reports: No Limitations - History of Present Illness INITIAL COMMENTS - FREE TEXT/NARRATIVE: HISTORY AND PHYSICAL: History of present illness: Patient is a 30-year-old male who presents to the emergency room with complaints of nausea, vomiting, diarrhea and abdominal pain x 2 days. Patient points to his lateral sides as the area of discomfort, nontender to palpation. Patient denies any fever, chills, headache, change in vision, syncope or near syncope. Denies any chest pain, back pain, shortness of breath or cough. Denies any constipation or dysuria. Has not noted any blood in urine or stool. In the patient's last emesis he noted a streak of blood, thinks it is from straining. Patient has been eating and drinking appropriately. Review of systems: As per history of present illness and below otherwise all systems reviewed and negative. Past medical history: As per history of present illness and as reviewed below otherwise non contributory. Surgical history: As per history of present illness and as reviewed below otherwise noncontributory. Social history: See social history for further information Family history: As per history of present illness and as reviewed below otherwise noncontributory. Physical exam: General: Well developed and well nourished 30-year-old female. Alert and orientated x 3. Nontoxic in appearance and in no acute distress. Vital signs are stable and have been reviewed by me. Nursing notes were reviewed. HEENT: Atraumatic, normocephalic, pupils equal and reactive bilaterally, negative for conjunctival pallor or scleral icterus, mucous membranes moist, TMs normal bilaterally, throat clear, neck supple, nontender, trachea midline. No drooling or trismus noted. No meningeal signs. No hot potato voice noted. Lungs: Clear to auscultation bilaterally. No wheezes, rales, or rhonchi. Chest nontender. Normal work of breathing, no accessory muscles used. Heart: S1S2, regular rate and rhythm without overt murmur, gallops, or rubs. No JVD. No peripheral edema Abdomen: Soft, nondistended, nontender. Normoactive bowel sounds. Negative for masses or costovertebral tenderness. Skin: Intact, warm, dry. No lesions or rashes noted. Hematologic: No petechiae or purpra. Mucosa appropriate color and normal nail bed color and refill. Extremities: Atraumatic, moves all extremities per self without difficulty or deficits, negative for cords or calf pain. Neurovascular unremarkable. Neuro: Awake, alert, oriented. Cranial nerves II through XII unremarkable. Cerebellum unremarkable. Motor and sensory unremarkable throughout. Exam nonfocal. Psychiatric: Mood and affect are appropriate. Normal thought process. Answering questions appropriately. Please note that the patient was seen and evaluated during the 2019 SARS-CoV-2 novel coronavirus pandemic period. Community viral transmission is ongoing at time of this encounter and the emergency department is operating under pandemic response procedures. Medical Decision Making: Patient is a 30-year-old male who presents to the emergency room with complaints of lateral abdominal pain without abdominal tenderness, nausea, vomiting and georgi rrhea. Patient's physical exam is unremarkable. He is agreeable to basic lab work at this time and IV fluids/medication. Elevated AST and ALT. Patient does have hematuria in his urine. Did discuss getting a sample for gonorrhea/chlamydia. Patient is agreeable, will call with results if treatment is required as he is asymptomatic. CT shows no acute or specific finding to explain hematuria. Specifically no kidney or ureteral stones and no hydronephrosis. Severe hepatic steatosis of uncertain etiology. Small 5 mm pulmonary nodule in the left lower lobe is very likely benign. This does not require follow-up evaluation unless the patient is high risk for lung cancer. I have talked with the patient about today's findings, in addition to providing specific details for plan of care. Patient states he does drink alcohol quite frequently. Encouraged him to cut back and follow-up with primary care for reevaluation. His pain has improved, vital signs are stable. Reassessment at the time of disposition demonstrates that the patient is in no acute distress. The patient is stable for discharge, counseling was provided and we discussed in great detail signs and symptoms that would prompt them to return to the Emergency Department. Medication, follow up and supportive care measures were reviewed and discussed. Voices understanding and is agreeable to plan of care. Denies any further questions or concerns at this time. Diagnostics: CBC, CMP, Lipase, UA, CT abd/pelvis, COVID Therapeutics: Pepcid, Zofran, NS Prescription: None Impression: Transaminitis Abdominal pain Hematuria Plan: 1. You were evaluated today on an emergent basis. Your liver enzymes are elevated. Please decrease any alcohol intake if you are a routine drinker. You also have a build-up of fat in your liver. This can cause problems in the future if not managed properly. [place] diet, advance as tolerated. 2. You can alternate Tylenol and ibuprofen as needed for pain and fever management. 3. We encourage you to follow up with your primary care provider and/or recommended specialist in the next few days for re-evaluation and further care/management. 4. If your symptoms should worsen, new symptoms develop or any of the signs and symptoms we discussed should arise please return to the emergency room or call 911 (if needed). Definitive disposition and diagnosis as appropriate pending reevaluation and review of above. Bilateral Lower Back Pain Score (Numeric/FACES): 7 - Related Data Allergies Allergy/AdvReac Type Severity Reaction Status Date / Time meperidine [From Demerol] Allergy Hives Verified 07/10/21 14:28 morphine Allergy Hives Verified 07/10/21 14:28 Home Meds: Home Meds . [No Known Home Meds] 08/02/19 [History] Past Medical History - Past Health History Medical/Surgical History: Denies Medical/Surgical History - Past Surgical History GI Surgical History: Reports: Hernia Repair/Other Other GI Surgeries/Procedures: Pt had gallbladder removed in 2019 Other Musculoskeletal Surgeries/Procedures:: hand surgery Social & Family History - Family History Family Medical History: No Pertinent Family History - Caffeine Use Caffeine Use: Reports: Soda - Recreational Drug Use Recreational Drug Use: No ED ROS GENERAL - Review of Systems Review Of Systems: Comprehensive ROS is negative, except as noted in HPI. ED EXAM, GI/ABD - Physical Exam Exam: See Below (See dictation) Course - Vital Signs Last Recorded V/S: Last Vital Signs Temp 97.8 F 07/10/21 14:29 Pulse 81 07/10/21 14:29 Resp 17 07/10/21 14:29 BP 160/101 H 07/10/21 14:29 Pulse Ox 97 07/10/21 14:29 - Orders/Labs/Meds Orders: Active Orders 24 hr Category Date Time Status CHLAMYDIA AND GONORRHEA BY [facility] Stat Lab 07/10/21 17:01 Ordered Labs: Laboratory Tests 07/10/21 07/10/21 07/10/21 Range/Units 14:40 14:45 14:45 WBC 6.68 (4.0-11.0) K/uL RBC 5.44 (4.50-5.90) M/uL Hgb 16.7 (13.0-17.0) g/dL Hct 47.3 (38.0-50.0) % MCV 86.9 (80.0-98.0) fL MCH 30.7 (27.0-32.0) pg MCHC 35.3 (31.0-37.0) g/dL RDW Std Deviation 42.2 (28.0-62.0) fl RDW Coeff of Wilda 13 (11.0-15.0) % Plt Count 250 (150-400) K/uL MPV 10.60 (7.40-12.00) fL Neut % (Auto) 64.7 (48.0-80.0) % Lymph % (Auto) 23.1 (16.0-40.0) % [place] % (Auto) 11.5 (0.0-15.0) % Eos % (Auto) 0.6 (0.0-7.0) % Baso % (Auto) 0.1 (0.0-1.5) % Neut # (Auto) 4.3 (1.4-5.7) K/uL Lymph # (Auto) 1.5 (0.6-2.4) K/uL [place] # (Auto) 0.8 (0.0-0.8) K/uL Eos # (Auto) 0.0 (0.0-0.7) K/uL Baso # (Auto) 0.0 (0.0-0.1) K/uL Nucleated RBC % 0.0 /100WBC Nucleated RBCs # 0 K/uL Sodium 135 L (136-148) mmol/L Potassium 3.7 (3.5-5.1) mmol/L Chloride 97 L (98-107) mmol/L Carbon Dioxide 25.4 (21.0-32.0) mmol/L BUN 9 (7.0-18.0) mg/dL Creatinine 1.2 (0.8-1.3) mg/dL Est Cr Clr Drug Dosing 87.08 mL/min Estimated GFR (MDRD) > 60.0 ml/min Glucose 96 (74-106) mg/dL Calcium 9.4 (8.5-10.1) mg/dL Total Bilirubin 0.9 (0.2-1.0) mg/dL AST 126 H (15-37) IU/L ALT 232 H (14-63) IU/L Alkaline Phosphatase 85 (46-116) U/L Total Protein 9.5 H (6.4-8.2) g/dL Albumin 4.2 (3.4-5.0) g/dL Globulin 5.3 H (2.6-4.0) g/dL Albumin/Globulin Ratio 0.8 L (0.9-1.6) Lipase 148 (73-393) U/L Urine Color DARK YELLOW Urine Appearance CLEAR Urine pH 6.0 (5.0-8.0) Ur Specific [place] 1.025 (1.001-1.035) Urine Protein 100 H (NEGATIVE) mg/dL Urine Glucose (UA) NEGATIVE (NEGATIVE) mg/dL Urine Ketones TRACE H (NEGATIVE) mg/dL Urine Occult Blood MODERATE H (NEGATIVE) Urine Nitrite NEGATIVE (NEGATIVE) Urine Bilirubin SMALL H (NEGATIVE) Urine Urobilinogen 1.0 (<2.0) EU/dL Ur Leukocyte Esterase NEGATIVE (NEGATIVE) Urine RBC 5-8 (0-2/HPF) Urine WBC 1-4 (0-5/HPF) Ur Epithelial Cells RARE (NONE-FEW) Urine Bacteria RARE (NEGATIVE) SARS-CoV-2 RNA (EVA) (NEGATIVE) 07/10/21 Range/Units 15:05 WBC (4.0-11.0) K/uL RBC (4.50-5.90) M/uL Hgb (13.0-17.0) g/dL Hct (38.0-50.0) % MCV (80.0-98.0) fL MCH (27.0-32.0) pg MCHC (31.0-37.0) g/dL RDW Std Deviation (28.0-62.0) fl RDW Coeff of Wilda (11.0-15.0) % Plt Count (150-400) K/uL MPV (7.40-12.00) fL Neut % (Auto) (48.0-80.0) % Lymph % (Auto) (16.0-40.0) % [place] % (Auto) (0.0-15.0) % Eos % (Auto) (0.0-7.0) % Baso % (Auto) (0.0-1.5) % Neut # (Auto) (1.4-5.7) K/uL Lymph # (Auto) (0.6-2.4) K/uL [place] # (Auto) (0.0-0.8) K/uL Eos # (Auto) (0.0-0.7) K/uL Baso # (Auto) (0.0-0.1) K/uL Nucleated RBC % /100WBC Nucleated RBCs # K/uL Sodium (136-148) mmol/L Potassium (3.5-5.1) mmol/L Chloride (98-107) mmol/L Carbon Dioxide (21.0-32.0) mmol/L BUN (7.0-18.0) mg/dL Creatinine (0.8-1.3) mg/dL Est Cr Clr Drug Dosing mL/min Estimated GFR (MDRD) ml/min Glucose (74-106) mg/dL Calcium (8.5-10.1) mg/dL Total Bilirubin (0.2-1.0) mg/dL AST (15-37) IU/L ALT (14-63) IU/L Alkaline Phosphatase (46-116) U/L Total Protein (6.4-8.2) g/dL Albumin (3.4-5.0) g/dL Globulin (2.6-4.0) g/dL Albumin/Globulin Ratio (0.9-1.6) Lipase (73-393) U/L Urine Color Urine Appearance Urine pH (5.0-8.0) Ur Specific [place] (1.001-1.035) Urine Protein (NEGATIVE) mg/dL Urine Glucose (UA) (NEGATIVE) mg/dL Urine Ketones (NEGATIVE) mg/dL Urine Occult Blood (NEGATIVE) Urine Nitrite (NEGATIVE) Urine Bilirubin (NEGATIVE) Urine Urobilinogen (<2.0) EU/dL Ur Leukocyte Esterase (NEGATIVE) Urine RBC (0-2/HPF) Urine WBC (0-5/HPF) Ur Epithelial Cells (NONE-FEW) Urine Bacteria (NEGATIVE) SARS-CoV-2 RNA (EVA) NEGATIVE (NEGATIVE) Meds: Medications Discontinued Medications Generic Name Dose Route Start Last Admin Trade Name Angelo PRN Reason Stop Dose Admin Famotidine 20 mg 07/10/21 14:54 07/10/21 15:01 Famotidine 20 Mg/2 Ml Sdv IVPUSH 07/10/21 14:55 20 mg ONETIME ONE Administration Sodium Chloride 1,000 mls @ 999 mls/hr 07/10/21 13:37 07/10/21 15:01 Normal Saline IV 07/10/21 14:37 999 mls/hr .Bolus ONE Administration Ondansetron HCl 4 mg 07/10/21 14:54 07/10/21 15:01 Ondansetron 4 Mg/2 Ml Sdv IVPUSH 07/10/21 14:55 4 mg ONETIME ONE Administration Departure - Departure Time of Disposition: 16:59 Disposition: Home, Self-Care 01 Clinical Impression: Transaminitis Abdominal pain Qualifiers: Abdominal location: unspecified location Qualified Code(s): R10.9 - Unspecified abdominal pain Hematuria Qualifiers: Hematuria type: unspecified type Qualified Code(s): R31.9 - Hematuria, unspecified - Discharge Information Instructions: Abdominal Pain, Adult, [id number] Referrals: PCP,None [Primary Care Provider] - Forms: ED Department Discharge Additional Instructions: The following information is given to patients seen in the emergency department who are being discharged to home. This information is to outline your options for follow-up care. We provide all patients seen in our emergency department with a follow-up referral. The need for follow-up, as well as the timing and circumstances, are variable depending upon the specifics of your emergency department visit. If you don't have a primary care physician on staff, we will provide you with a referral. We always advise you to contact your personal physician following an emergency department visit to inform them of the circumstance of the visit and for follow-up with them and/or the need for any referrals to a consulting specialist. The emergency department will also refer you to a specialist when appropriate. This referral assures that you have the opportunity for follow-up care with a specialist. All of these measure are taken in an effort to provide you with optimal care, which includes your follow-up. Under all circumstances we always encourage you to contact your private physician who remains a resource for coordinating your care. When calling for follow-up care, please make the office aware that this follow-up is from your recent emergency room visit. If for any reason you are refused follow-up, please contact the [facility] Emergency Department at and asked to speak to the emergency department charge nurse. [facility] [address] [place] [address] [facility] [address] [place] [address] Thank you for choosing the [facility] emergency department in [place] for your medical needs today. It was a pleasure caring for you. Today you were seen in the emergency department for abdominal pain. 1. You were evaluated today on an emergent basis. Your liver enzymes are elevated. Please decrease any alcohol intake if you are a routine drinker. You also have a build-up of fat in your liver. This can cause problems in the future if not managed properly. [place] diet, advance as tolerated. 2. You can alternate Tylenol and ibuprofen as needed for pain and fever management. 3. We encourage you to follow up with your primary care provider and/or recommended specialist in the next few days for re-evaluation and further care/management. 4. If your symptoms should worsen, new symptoms develop or any of the signs and symptoms we discussed should arise please return to the emergency room or call 911 (if needed). Sepsis Event Note (ED) - Focused Exam Vital Signs: Vital Signs Temp Pulse Resp BP Pulse Ox 07/10/21 14:29 97.8 F 81 17 160/101 H 97 - My Orders Last 24 Hours: My Active Orders 07/10/21 17:01 CHLAMYDIA AND GONORRHEA BY [facility] Stat - Assessment/Plan Last 24 Hours: My Active Orders 07/10/21 17:01 CHLAMYDIA AND GONORRHEA BY [facility] Stat
[2021-07-10 15:36] LABS: BLOOD UREA NITROGEN,BUN 9 mg/dL (7.0-18.0); CARBON DIOXIDE,CO2 25.4 mmol/L (21.0-32.0); CHLORIDE,CL 97 mmol/L (98-107); GLUCOSE RANDOM 96 mg/dL (74-106); LIPASE 148 U/L (73-393); POTASSIUM,K 3.7 mmol/L (3.5-5.1); SODIUM,NA 135 mmol/L (136-148)
--- NOTE | 2021-07-10 16:53 | CT ---
INDICATION: Hematuria. TECHNIQUE: CT abdomen and pelvis without contrast. COMPARISON: None. FINDINGS: Lower chest: A 5 mm noncalcified nodule is in the left lower lobe on series 201, image 19. Liver: Diffuse severe fatty infiltration. No focal lesions. Gallbladder and bile ducts: Post cholecystectomy. No biliary dilatation. Pancreas: Unremarkable. No mass or inflammation. Spleen: Normal in size. No masses. Adrenal glands: Normal in size. No nodules. Kidneys: Normal in size. No suspicious masses, stones, or hydronephrosis. GI tract: Unremarkable. Normal in caliber. No sign of mass or inflammation. Normal appendix. Vasculature: Unremarkable. Lymph nodes: No lymphadenopathy. Abdominal wall/Omentum/Peritoneum: Unremarkable. No sign of mass or infiltration. No free air or significant free fluid. Pelvis: Unremarkable. No pelvic masses. Bones: Unremarkable for age. IMPRESSION: 1. No acute or specific finding to explain hematuria. Specifically no kidney or ureteral stones and no hydronephrosis. 2. Severe hepatic steatosis of uncertain etiology. 3. Small 5 mm pulmonary nodule in the left lower lobe is very likely benign. This does not require follow-up evaluation unless the patient is high risk for lung cancer. Please note that all CT scans at this facility use dose modulation, iterative reconstruction, and/or weight-based dosing when appropriate to reduce radiation dose to as low as reasonably achievable. Dictated by Jose D Cabrera MD @ 07/10/2021 4:53:01 PM (Electronically Signed)
[2021-07-12 12:07] LABS: C.TRACHOMATIS BY TMA Positive (Negative); N.GONORRHOEAE BY TMA Negative (Negative)
== END 2021-07-10 17:16 | disposition home or self-care (01) ==
LOC: MW.ED 13:34
DX: R10.9 Unspecified abdominal pain (principal); R31.9 Hematuria, unspecified; R11.2 Nausea with vomiting, unspecified; R19.7 Diarrhea, unspecified; R74.01 Elevation of levels of liver transaminase levels; Z20.822 Contact with and (suspected) exposure to COVID-19; Z88.5 Allergy status to narcotic agent
CPT/HCPCS: 36415; 74176; 80053; 81001; 83690; 85025; 87491; 87591; 87635; 96374; 96375; 99284; J2405; J3490; J7030; U0002

== ENCOUNTER 2021-12-09 18:50 | Emergency (ER) | payer SELFPAY ==
[2021-12-09] MEDS ORDERED: Sodium Chloride 0.9% 10 ML Syringe FLUSH PRN (20:35)
[2021-12-09] MEDS ORDERED: Sodium Chloride 0.9% 2.5 ML Syringe FLUSH PRN (20:35)
== END 2021-12-09 21:05 | disposition home or self-care (01) ==
LOC: MW.ED 18:50
DX: A60.01 Herpesviral infection of penis (principal); Z88.5 Allergy status to narcotic agent; Z88.8 Allergy status to other drugs, medicaments and biological substances
CPT/HCPCS: 99283

== ENCOUNTER 2022-10-08 18:39 | Emergency (ER) | payer SELFPAY ==
[2022-10-08] MEDS ORDERED: Ondansetron 4 MG/2 ML SDV IVPUSH ONE (20:20)
[2022-10-08] MEDS ORDERED: Sodium Chloride 0.9% 1,000 ML IV ONE (20:20)
[2022-10-08] MEDS ORDERED: Sodium Chloride 0.9% 2.5 ML Syringe FLUSH PRN (20:20)
[2022-10-08] MEDS ORDERED: Sodium Chloride 0.9% 10 ML Syringe FLUSH PRN (20:20)
[2022-10-08] MEDS ORDERED: Ketorolac 30 MG/ML SDV IVPUSH ONE (20:23)
[2022-10-08 20:53] LABS: CORONAVIRUS COVID-19 NAA NEGATIVE (NEGATIVE); INFLUENZA A NAA NEGATIVE (NEGATIVE); INFLUENZA B NAA NEGATIVE (NEGATIVE); RESPIRATORY SYNCYTIAL VIR NAA NEGATIVE (NEGATIVE)
[2022-10-08 21:32] LABS: BLOOD UREA NITROGEN,BUN 13 mg/dL (7.0-18.0); CHLORIDE,CL 98 mmol/L (98-107); GLUCOSE RANDOM 97 mg/dL (74-106); LIPASE 154 U/L (73-393); POTASSIUM,K 4.1 mmol/L (3.5-5.1); SODIUM,NA 135 mmol/L (136-148)
[2022-10-08 21:37] LABS: ESTIMATED GFR 116 mL/min (>60)
== END 2022-10-08 22:14 | disposition home or self-care (01) ==
LOC: MW.ED 18:39
DX: E86.0 Dehydration (principal); K62.5 Hemorrhage of anus and rectum; B34.9 Viral infection, unspecified; I10 Essential (primary) hypertension; Z88.5 Allergy status to narcotic agent; Z20.822 Contact with and (suspected) exposure to COVID-19
CPT/HCPCS: 0241U; 36415; 80053; 80307; 83690; 85025; 96361; 96374; 96375; 99284; J1885; J2405; J3490; J7030

== ENCOUNTER 2023-03-24 23:00 | Emergency (ER) | payer SELFPAY ==
[2023-03-24] MEDS ORDERED: Sodium Chloride 0.9% 10 ML Syringe FLUSH PRN (23:40)
[2023-03-24] MEDS ORDERED: Sodium Chloride 0.9% 2.5 ML Syringe FLUSH PRN (23:40)
[2023-03-24] MEDS ORDERED: Sodium Chloride 0.9% 1,000 ML IV ONE (23:41)
[2023-03-25 00:19] LABS: A/G RATIO 0.8 (0.9-1.6); ALBUMIN 3.9 g/dL (3.4-5.0); BILIRUBIN TOTAL 0.5 mg/dL (0.2-1.0); CARBON DIOXIDE,CO2 26.2 mmol/L (21.0-32.0); EST CRCL DRUG DOSING (CG) 95.7 mL/min; POTASSIUM,K 4.4 mmol/L (3.5-5.1)
[2023-03-25 00:27] LABS: BASOPHILS PERCENT AUTO 0.2 % (0.0-1.5); EOSINOPHILS PERCENT AUTO 0.5 % (0.0-7.0); HEMATOCRIT 43.1 % (38.0-50.0); HEMOGLOBIN 14.9 g/dL (13.0-17.0); LYMPHOCYTES ABSOLUTE AUTO 2.6 K/uL (0.6-2.4); LYMPHOCYTES PERCENT AUTO 45.2 % (16.0-40.0); MEAN CORPUSCULAR HEMOGLOBIN 30.6 pg (27.0-32.0); MEAN CORPUSCULAR HGB CONC 34.6 g/dL (31.0-37.0); MEAN CORPUSCULAR VOLUME 88.5 fL (80.0-98.0); MONOCYTES ABSOLUTE AUTO 0.5 K/uL (0.0-0.8); MONOCYTES PERCENT AUTO 8.6 % (0.0-15.0); NEUTROPHILS ABSOLUTE AUTO 2.6 K/uL (1.4-5.7); NEUTROPHILS PERCENT AUTO 45.5 % (48.0-80.0); NRBC ABSOLUTE 0 K/uL; PLATELET COUNT,PLT 256 K/uL (150-400); RED BLOOD CELL COUNT 4.87 M/uL (4.50-5.90); WHITE BLOOD CELL COUNT,WBC 5.68 K/uL (4.0-11.0)
[2023-03-25 00:37] LABS: INR 1.05 (0.86-1.11)
[2023-03-25 00:47] LABS: LACTIC ACID 1.3 mmol/L (0.4-2.0)
[2023-03-25] MEDS ORDERED: Iopamidol 755 MG/ML 500 ML Multipack Bottle IVPUSH STA (01:40)
== END 2023-03-25 03:01 | disposition home or self-care (01) ==
LOC: MW.ED 23:00
DX: K62.3 Rectal prolapse (principal); Z88.5 Allergy status to narcotic agent
CPT/HCPCS: 36415; 74177; 80053; 83605; 83690; 85025; 85610; 86850; 86900; 86901; 93005; 96360; 99284; J3490; J7030; Q9967

== ENCOUNTER 2023-04-27 11:44 | Day surgery (SDC) | payer MEDICAID ==
[~2023-04-27 11:44] MED LIST: Lactated Ringers 1,000 ML IV SCH
[2023-04-27] MEDS ORDERED: Propofol 200 MG/20 ML SDV ONE ×2 (12:23→12:32)
[2023-04-27] MEDS ORDERED: Lidocaine 2% 5 ML SDV ONE (12:23)
[2023-04-27] MEDS ORDERED: Lactated Ringers 1,000 ML IV SCH (13:00)
== END 2023-04-27 13:28 | disposition home or self-care (01) ==
LOC: MW.SDS 11:44
PROVIDERS: ATTEND Surgery
DX: K62.5 Hemorrhage of anus and rectum (principal); F17.210 Nicotine dependence, cigarettes, uncomplicated; Z20.822 Contact with and (suspected) exposure to COVID-19; Z88.5 Allergy status to narcotic agent; Z90.49 Acquired absence of other specified parts of digestive tract; Z98.890 Other specified postprocedural states
CPT/HCPCS: 45378; J2704; J7120; 00811; J3490

== ENCOUNTER 2023-06-01 15:08 | Emergency (ER) | payer MEDICAID ==
[2023-06-01] MEDS ORDERED: traMADol 50 MG Tab PO ONE (15:40)
== END 2023-06-01 18:06 | disposition home or self-care (01) ==
LOC: MW.ED 15:08
DX: S92.352A Displaced fracture of fifth metatarsal bone, left foot, initial encounter for closed fracture (principal); S92.255A Nondisplaced fracture of navicular [scaphoid] of left foot, initial encounter for closed fracture; S92.154A Nondisplaced avulsion fracture (chip fracture) of right talus, initial encounter for closed fracture; Z79.899 Other long term (current) drug therapy; Z88.5 Allergy status to narcotic agent; Z88.8 Allergy status to other drugs, medicaments and biological substances; X50.1XXA Overexertion from prolonged static or awkward postures, initial encounter; Y93.71 Activity, boxing
CPT/HCPCS: 73610; 73620; 99283; A9270